=== PATIENT | female | born 1980 | race Caucasian/White ===

== ENCOUNTER → 2021-05-01 12:54 | Outpatient (CLI) | payer BC, SELFPAY ==
--- NOTE | ~2021-05-01 | US_ITS ---
EXAMINATION: US pelvic complete EXAM DATE: 05/01/2021 13:36 INDICATION: N92.1 - Excessive and frequent menstruation. TECHNIQUE: Pelvic transabdominal sonogram was performed. There are multiple grayscale and Doppler im ages available for interpretation. There is no prior study for comparison. FINDINGS: Uterus measures 12.7 x 4.8 x 6.7 cm, with probable identification of 4.6 cm fibroid. Endom etrial stripe measures 10 mm, within normal limits. There is no free pelvic fluid. Right adnexa: The ovary measures 3.2 x 2.6 x 2.0 cm and is morphologically normal. Ovarian vascular f low confirmed. Left adnexa: The ovary measures 4.7 x 2.5 x 2.5 cm and is morphologically normal. Ovarian vascular fl ow confirmed. IMPRESSION: 1. Probable fibroid uterus. Reviewed, dictated and finalized at location A. IMPRESSION: 1. Probable fibroid uterus.
== END ==
PROVIDERS: PCP Family Medicine; Visit Provider Family Medicine
DX: N92.1 Excessive and frequent menstruation with irregular cycle (principal)
CPT/HCPCS: 76856

== ENCOUNTER → 2021-05-17 13:59 | Outpatient (CLI) | payer BC, SELFPAY ==
--- NOTE | ~2021-05-17 | MM_ITS ---
EXAMINATION: MM screening deja BI w ralph HISTORY: Screening mammogram TECHNIQUE: Craniocaudal and mediolateral oblique 3-D tomosynthesis images were obtained and synthetic 2-D images were generated. CAD analysis was submitted and interpreted. COMPARISON: September 07, 2013 bilateral diagnostic mammogram and bilateral breast ultrasound examinat ion BREAST PARENCHYMAL COMPOSITION: The breasts are extremely dense, which lowers the sensitivity of mamm ography. FINDINGS: There is no evidence of suspicious mass, calcification, or architectural distortion to sugg est malignancy in either breast. There has been no suspicious interval change. IMPRESSION: 1. No mammographic evidence of malignancy. 2. Recommend routine screening mammography in one year. BI-RADS Category 1: Negative Reviewed, dictated and finalized at location A.
== END ==
PROVIDERS: PCP Family Medicine; Visit Provider Family Medicine
DX: Z12.31 Encounter for screening mammogram for malignant neoplasm of breast (principal)
CPT/HCPCS: 77063; 77067

== ENCOUNTER 2023-09-02 02:07 | Day surgery (SDC) | payer BC, SELFPAY ==
[2023-08-26 15:44] VITALS: BMI 22.6
--- NOTE | 2023-08-26 15:48 | PC.NURSE ---
Report to the Outpatient Waiting Room, entrance under the green pavilion located off [facility], at time 0830 on date 09/02/23. Planned Procedure Time: 1030. Time changes happen often and if your time is changed the preop area will call you the afternoon before. - You and your visitor will be asked to self-screen and do not enter if you have any COVID symptoms. - A mask is optional within the hospital at this time. Patients may have clear liquids (water, carbonated beverages, clear teas, apple juice) until 3 hours prior to surgery with a maximum of 20 ounces. - No food from midnight until time of surgery Take the following medications with a SIP of water the morning of surgery: LEXAPRO DO NOT STOP ANY OF YOUR OTHER PRESCRIPTION MEDICATIONS PRIOR TO SURGERY ?EXCEPT THE FOLLOWING Medications to discontinue per physician: N/A Date to take last dose: N/A Please no make-up, nail yemeni, hairspray, perfume, deodorant, or body powder the day of surgery. No jewelry (including any body piercings) or valuables the day of surgery, leave them at home. Please take a shower or bath the night before, or the morning of, surgery with an antibacterial soap. Wear comfortable, loose fitting clothing. - Jewelry must be removed prior to entering the operating room. Rings and piercings that are not removed may be cut off. - The hospital will not accept responsibility for valuables. - Please leave all valuables, including medications, at home the day of surgery. If you are going home after surgery, a licensed personal driver must drive you home. - NO public transportation without another adult if you receive anesthesia. - We recommend that an adult stay with you for 24 hours following discharge. - We also recommend that you do not drive, make important decision, drink alcoholic beverages, or take any drugs that were not prescribed by your health care provider for at least 24 hours after your discharge time. Follow any additional instructions given to you from your surgeon. If you or anyone in your household have experienced Covid symptoms in the past week, please notify your surgeon or the nurse liaison at the phone number below for possible testing. Telephone instructions given to SHAWNA HENRY and asked if any additional questions and then verbalized understanding. Patient advised to call surgeon office or pre surgery nurse liaison [phone] if any additional questions.
--- NOTE | 2023-09-02 07:13 | P.HPUP_ITS ---
History and Physical Update Update Date/Time: 09/02/23 07:13 History and Physical has been reviewed, including an updated exam of the patient. There are NO changes in the patient's condition. Risks, benefits, and alternatives have been discussed and questions answered. Patient agrees to proceed with hysteroscopy, D&C, with polypectomy vs myomectomy ..
[2023-09-02 09:00] VITALS: BP 99/57; PULSE 80; RESP 16; TEMP 36.1; O2SAT 100
--- NOTE | 2023-09-02 09:00 | P.PNAN_ITS ---
Anes - Initial Pre Proc Eval Procedure: Operation Date: 09/02/23 10:30 Proposed Procedures p Hysteroscopy, Dilation and Curettage with Polypectomy - Delores Duncan MD Date/Time: 09/02/23 09:00 Surgeon: Delores Duncan MD Pre Op Diagnosis: menometrorrhagia Patient Data Age: 43 Gender: F Height: 1.55 m Weight: 54.45 kg Allergies Allergy/AdvReac Type Severity Reaction Status Date / Time No Known Allergies Allergy Verified 08/26/23 15:44 Home Medications Medication Instructions Recorded Confirmed Type escitalopram oxalate 10 mg tablet 10 mg PO DAILY #90 tabs 08/07/23 08/26/23 Rx (Lexapro) tranexamic acid 650 mg tablet 1,300 mg PO Q8H 5 days #30 tabs 08/07/23 08/26/23 Rx Patient hx anesthesia problems: none Family hx anesthesia problems: none Results Review: All pre-operative results and documents have been reviewed as part of the pre- operative evaluation. [facility] Past Medical History Medical History History of COVID-19 History of induced hypertension Kidney stones Ureteral stone Surgical History Surgical History History of delivery x3, last one in 2010 History of tubal ligation 2010 Family History Family History Mother Family history of malignant neoplasm of uterus Father Hypertension Sibling Patient's sister is in good health Patient's brother is in good health Social History Social History Social History: Smoking status: Never smoker Second hand tobacco smoke exposure: No Alcohol intake: never Alcohol use details: Occasionally Substance use: never Substance use type: does not use Do You Feel Safe in your Home?: Yes Lack of Transportation: No Lack of Food: Never True Current Housing: I Have Housing Concerned About Future Housing: No Difficulty Paying Gas/Electric Bills: No Difficulty Paying for Meds: No Currently Unemployed: No Education: Bachelor's Degree Living arrangements: with family Occupation/Education: occupation Gender identity (if verbalized by the patient): Female Sexual Orientation (if Verbalized by the Patient): Straight or Heterosexual Spiritual care concerns: No Anes - Eval Final PreProcedure Day of Procedure 09/02/23 09:00 Patient weight: normal Heart: regular rate and rhythm Lungs: clear to auscultation Airway: Mallampati scale class II Neurological: alert and oriented Last oral intake: >/= 8 hours ASA classification: II Emergent: no Anesthetic plan: proceed Anesthesia type and monitoring: general GIVS and standard monitoring Results Review: All pre-operative results and documents have been reviewed as part of the pre- operative evaluation. Informed Consent: The patient's anesthetic plan and its attendant risks and benefits were discussed with the patient/family/POA. Questions were solicited and answers provided to the satisfaction of the patient/family/POA.
[2023-09-02] MEDS: LACTATED RINGERS 1,000 ML 30 ML IV CONT (09:15)
[2023-09-02] MEDS: ACETAMINOPHEN 500 MG TABLET 1000 MG PO (09:15)
--- NOTE | 2023-09-02 11:41 | P.OP_ITS ---
Procedure Note - Detailed Date of Procedure 09/02/23 Pre-op Diagnosis menometrorrhagia Post-op Diagnosis Other (Endometrial polyps) Procedure Performed Hysteroscopy, D&C, and polypectomy Surgeon Delores Duncan MD Anesthesia MAC Findings Uterus sounded to 10cm; multiple endometrial polyps in the cavity (at least 6- 8); removed using the Aveta tissue shaver. Scarring in the endocervix also noted (first picture). Bilateral tubal ostia visualized (pic 3&4). Normal cavity at the end of the procedure (pic 6). Good hemostasis. Fluid deficit of 320cc. Description of Procedure Caron was taken to the operating room where she was placed under sedation without complications. She was then prepped and draped in the usual sterile fashion in the dorsal lithotomy position with her legs in low Arnoldo stirrups. A time-out was performed and no perioperative antibiotics were indicated. A bivalve speculum was placed within the vagina where the cervix was easily identified. The anterior lip of the cervix was grasped with a single-tooth tenaculum. The cervix was then serially dilated to allow for the hysteroscope. The hysteroscope was advanced into the uterine cavity with the above findings noted. Using the Aveta tissue shaver, the polyps were removed from the cavity without complication. A curettage was then performed until a good uterine cry was felt throughout the uterus. Good hemostasis was noted. All instruments were removed from the vagina. Sponge, lap, instrument, and needle counts were correct at the end of the procedure. Patient was awoken from anesthesia and taken to recovery with plans of same-day discharge home. Estimated Blood Loss 10 IV Fluids 800 (Fluid deficit: 320cc) Drains No Packing No Pathology Yes (endometrial polyps (sock), and endometrial curettings) Complications No immediate complications Condition Stable Disposition Same day [facility] Billing Surgery - Charge Forward: Surgery Billing
[2023-09-02 11:43] VITALS: BP 113/67; PULSE 58; RESP 16; O2SAT 100
[2023-09-02 12:10] VITALS: BP 107/74; PULSE 49; RESP 16; O2SAT 100
== END 2023-09-02 12:22 | disposition home or self-care (01) ==
PROVIDERS: PCP Family Medicine; Visit Provider Obstetrics & Gynecology
PROC: 0U5B8ZZ Destruction of Endometrium, Via Natural or Artificial Opening Endoscopic (ICD-10-PCS; CPT 58563; principal; 2023-09-02 10:30)
DX: N92.1 Excessive and frequent menstruation with irregular cycle (principal); N84.0 Polyp of corpus uteri; Z80.49 Family history of malignant neoplasm of other genital organs
CPT/HCPCS: 58558; 88305; A9270; J1100; J2250; J2405; J2704; J3010; J7120